=== PATIENT | female | born 1975 | race Caucasian/White ===

== ENCOUNTER 2017-11-06 05:35 | Day surgery (SDC) | payer MEDICAID ==
[~2017-11-06 05:35] MED LIST: DOXYCYCLINE HYCLATE 100 MG CAP/TAB PO ONE; LR 1,000 ML IV ONE
[2017-11-06] MEDS ORDERED: DOXYCYCLINE HYCLATE 100 MG CAP/TAB PO ONE (06:30)
--- NOTE | 2017-11-06 07:19 | PDANEPAE ---
ANE History of Present Illness 42 year old female with demise at 8weeks presents for D&C. Procedure to be done in L&D ORs. ANE Past Medical History - Cardiovascular History Hx Hypertension: No Hx Arrhythmias: No Hx Chest Pain: No Hx Coronary Artery / Peripheral Vascular Disease: No Hx CHF / Valvular Disease: No Hx Palpitations: No - Pulmonary History Hx COPD: No Hx Asthma/Reactive Airway Disease: No Hx Recent Upper Respiratory Infection: No Hx Oxygen in Use at Home: No Hx Sleep Apnea: No Sleep Apnea Screening Result - Last Documented: Negative - Neurologic History Hx Cerebrovascular Accident: No Hx Seizures: No Hx Dementia: No - Endocrine History Hx Diabetes: No - Renal History Hx Renal Disorders: No - Liver History Hx Hepatic Disorders: No - Neurological & Psychiatric Hx Neurological / Psychiatric History Comment: History of migraine headaches - Cancer History Hx Cancer: No - Congenital Disorder History Hx Congenital Disorders: No - GI History GERD: no Hx Gastrointestinal Disorders: No ANE Review of Systems Review of systems is: negative Review of Systems: - Exercise capacity Exercise capacity: >=4 METS ANE Patient History - Allergies Allergies/Adverse Reactions: No Allergies [NKDA] Allergy (Verified 11/06/17 06:34) - Home Medications Home medications: home medication list seen and reviewed - NPO status NPO Status: no food or drink >8 hours NPO Since - Liquids (Date): 11/06/17 NPO Since - Liquids (Time): 00:00 NPO Since - Solids (Date): 11/06/17 NPO Since - Solids (Time): 00:00 - Anes Hx Anes Hx: no prior problems - Smoking Hx Smoking Status: Never smoked Marijuana use: No - Alcohol Use Alcohol Use: Rarely - Family Anes Hx Family Anes Hx: neg - N/A ANE Labs/Vital Signs - Vital Signs Vital Signs: reviewed preoperatively; see RN documention for details Blood Pressure: 106/69 Heart Rate: 79 Respiratory Rate: 16 O2 Sat (%): 95 Height: 167.64 cm Weight: 58.06 kg ANE Physical Exam - Airway Neck exam: FROM Mallampati Score: Class 1 Mouth exam: normal dental/mouth exam - Pulmonary Pulmonary: no respiratory distress - Cardiovascular Cardiovascular: regular rate and rhythym - ASA Status ASA Status: II ANE Anesthesia Plan Anesthesia Plan: GA w LMA Total IV Anesthesia: Yes
[2017-11-06] MEDS ORDERED: PROPOFOL/EMULSION 500 MG/50 ML BOTTLE IV ONE (07:25)
[2017-11-06] MEDS ORDERED: MIDAZOLAM 2 MG/2 ML VIAL ONE (07:28)
[2017-11-06] MEDS ORDERED: DEXAMETHASONE 4 MG/ML VIAL ONE (07:29)
[2017-11-06] MEDS ORDERED: ONDANSETRON 4 MG/2 ML VIAL ONE (07:29)
[2017-11-06] MEDS ORDERED: ceFAZolin 2 GM/DEXTROSE 100 ML IV ONE (07:45)
--- NOTE | 2017-11-06 07:45 | PDHPUP ---
History & Physical Update H&P update statement: This history and physical update is based on an assessment of the patient which was completed after admission or registration (within 24 hours), but prior to the surgery/procedure. H&P update: H&P reviewed & patient examined H&P changes: Pt wanted to cancel surgery for 11/05/17 and try medical treatment with Cytotec. She was given a Rx with instructions. She took only one dose secondary to side effects of n/v/d. She did have heavy bleeding and cramping, but u/s done in the office yesterday showed incomplete AB with a lot of debris in EC and lining measuring 2.7 cm. Discussed proceeding with suction D&C for removal of retained POCs. Pt agrees with the plan. 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 Surgical consents were obtained. Pt understands all the risks of surgery and wants to proceed with surgery at this time.
--- NOTE | 2017-11-06 07:53 | POSTOPPROG ---
Post Op Note Date of Operation: 11/06/17 Surgeon: Ivelisse Howard Evidence Technician: None Anesthesiologist: Dr. Erickson Anesthesia: GET(General Endotracheal) (Pt did not ajay exam under IV sedaton and LMA so GET needed), IV Sedation, LMA Pre-op Diagnosis: Incomplete AB at 8 weeks Post-op Diagnosis: Incomplete AB at 8 weeks Indication: 42 y/o with MAB at 8 2/7 wks; s/p Cytotec with retained POCs Procedure: Suction D&C Findings: Uterus sounded to 9 cm. Os dilated to 3 cm. Mod amt POCs. Pt is Rh+ Inf/Abcess present in the surg proc area at time of surgery?: No Depth: Organ Space EBL: 50-100 Total fluids administered: 600 cc Complications: None Specimen(s): POCs
[2017-11-06] MEDS ORDERED: ONDANSETRON 4 MG/2 ML VIAL IVP PRN (09:14)
[2017-11-06] MEDS ORDERED: fentaNYL 100 MCG/2 ML INJ IVP PRN (09:14)
[2017-11-06] MEDS ORDERED: NALOXONE HCL 0.4 MG/ML INJ IVP PRN (09:14)
[2017-11-06] MEDS ORDERED: MEPERIDINE 25 MG/ML SYR IVP PRN (09:14)
[2017-11-06] MEDS ORDERED: LR 500 ML IV PRN (09:14)
[2017-11-06] MEDS ORDERED: HYDROCODONE/APAP 5/325 TAB PO PRN (09:14)
--- NOTE | 2017-11-06 09:16 | POSTANESTH ---
Post Anesthetic Evaluation Cardiovascular Status: Normal, Stable, Similar to Pre-Op Cond Respiratory Status: Normal, Stable, Similar to Pre-op Cond. Level of Consciousness/Mental Status: Can Participate in Eval, Alert and Oriented Pain Control: Adequate, Prn Tx Ordered Nausea/Vomiting Control: Adequate, Prn Tx Ordered Complications Possibly Related to Anesthesia: None Noted (Patient tolerated procedure and anesthesia well.)
[2017-11-06 10:08] VITALS: BP 110/64; PULSE 61; RESP 16; TEMP 100
[2017-11-06 11:17] VITALS: O2SAT 96
--- NOTE | 2017-11-06 11:33 | GOP ---
[f rep st] OPERATIVE REPORT DATE OF OPERATION: 11/06/2017 SURGEON: Ivelisse Howard DO [facility] NURSE SUPERVISOR: None. ANESTHESIA: IV sedation with LMA converted to general anesthesia. ANESTHESIOLOGIST: Desmond Erickson MD PREOPERATIVE DIAGNOSIS: Incomplete . POSTOPERATIVE DIAGNOSIS: Incomplete . PROCEDURE PERFORMED: Suction dilation and curettage. FINDINGS: On bimanual exam the patient was approximately 8-10 weeks anteverted with a mobile uterus. Cervix was dilated to 3 cm with blood clots in the vagina as well as products of conception noted at the cervical os. The uterus was sounded to 9 cm and a curved 8 mm suction curette was used with a moderate amount of products of conception noted. There was minimal bleeding at the end of the procedure. The patient is Rh positive, so no RhoGAM is needed. SPECIMENS: Products of conception. The patient desires Anora testing. ESTIMATED BLOOD LOSS: 75 cc INDICATIONS: The patient is a 42-year-old, 3, para 0-0-2-0, with a missed AB at 8 weeks and 2 days. The patient presented at her initial new OB at 10 weeks by LMP, but on ultrasound was consistent with an 8-week with no heart rate noted. The patient was given condolences and treatment options were discussed. The patient wanted to observe and see if her body would expel the products, but 2 weeks went by and the patient had no spotting, bleeding, or cramping and decided she wanted to try Cytotec. The patient took 1 dose of Cytotec vaginally, but did not tolerate side effects with nausea, vomiting, and diarrhea. She did have heavy bleeding, but did not pass any tissue and had severe cramping. She came in for an ultrasound yesterday that did show retained products, lots of debris in the endometrium, and a thickness of 2.1 cm. We discussed proceeding to the OR for a suction D and C and the patient understands all risks at this time. She was properly consented and agreed to proceed to the OR. DESCRIPTION OF PROCEDURE: The patient was taken to the operating room where IV sedation and LMA were administered and then converted to general anesthesia since patient did not tolerate placement of speculum. She was positioned in the dorsal lithotomy position and prepped and draped in the normal sterile fashion. Once the anesthesia was found be adequate, the bimanual exam was performed under anesthetic. Next, a weighted speculum was placed in the vagina and the anterior lip of the cervix was grasped with an Allis clamp. The patient was already dilated 3 cm, so no cervical dilation was needed. The blood clots and tissue noted in the vault and at the os were removed. The uterus sounded to 9 cm and a curved 8 mm suction curette was then used. It was connected to suction, placed in the cervix and up in the uterus, and a suction curettage was performed. This was done multiple times to remove all products of . Next, we turned our attention to a sharp curettage, which was performed in all 4 quadrants of the uterus until a gritty texture was noted. The suction curettage was then performed one last time to remove any remaining products. After the procedure, minimal bleeding was noted. All instruments were removed from the vagina and the cervix appeared to be hemostatic. The patient tolerated the procedure well. Sponge and instrument counts were correct x2. No complications. She received Doxycycline in the PACU, but had vomited so was given 2 g of Ancef. The patient was then awakened, taken out of the dorsal lithotomy position, and taken to the PACU in stable condition. FLUIDS REPLACED: 600 cc of LR. URINE OUTPUT: The patient emptied her bladder prior to the procedure. /[id number]/MODL MTDD
== END 2017-11-06 11:30 | disposition home or self-care (01) ==
LOC: FOBOP 05:35
PROVIDERS: ATTEND Obstetrics & Gynecology
PROC: 10D17ZZ Extraction of Products of Conception, Retained, Via Natural or Artificial Opening (ICD-10-PCS; principal; 2017-11-06)
DX: O03.4 Incomplete spontaneous abortion without complication (principal)
CPT/HCPCS: J0690; J1100; J2250; J2405; J2704

== ENCOUNTER → 2018-09-22 | Outpatient (CLI) | payer MEDICAID | LOC: FLAB 10:03 | PROVIDERS: ATTEND Internal Medicine | DX: M79.674 Pain in right toe(s) (principal); M79.675 Pain in left toe(s) ==